=== PATIENT | male | born 1985 ===

== ENCOUNTER 2017-09-10 18:26 | Emergency (ER) | payer SELFPAY ==
--- NOTE | 2017-09-10 20:11 | RAD ---
INDICATION: Left knee injury. TECHNIQUE: 4 views of the left knee were obtained. FINDINGS: The bones are in normal alignment. No joint effusion or fracture is seen. Joint spaces appear maintained. IMPRESSION: NO EVIDENCE FOR FRACTURE.
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
[2017-09-10] MEDS ORDERED: Ibuprofen TAB* 400 MG PO ONE (21:02)
[2017-09-10 21:03] VITALS: BP 140/80
== END 2017-09-10 21:13 | disposition home or self-care (01) ==
LOC: ED 18:26
DX: M25.562 Pain in left knee (principal); W17.89XA Other fall from one level to another, initial encounter; F17.220 Nicotine dependence, chewing tobacco, uncomplicated
CPT/HCPCS: 99282; A9270-GY

== ENCOUNTER 2018-11-03 15:26 | Emergency (ER) | payer SELFPAY ==
[2018-11-03 16:31] VITALS: BP 135/86
[2018-11-03 17:35] LABS: Influenza A Molecular NEGATIVE (Negative); Influenza B Molecular NEGATIVE (Negative)
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
== END 2018-11-03 17:54 | disposition home or self-care (01) ==
LOC: UCEAST 15:26
DX: J06.9 Acute upper respiratory infection, unspecified (principal); F17.290 Nicotine dependence, other tobacco product, uncomplicated
CPT/HCPCS: 99211; G0463